=== PATIENT | female | born 1970 | race Caucasian/White ===

== ENCOUNTER → 2017-01-15 | Outpatient (CLI) | payer OTHER ==
--- NOTE | 2017-01-15 16:35 | KCIC ---
PROCEDURE MRI lumbar spine without contrast. HISTORY Pain unresponsive to conservative therapy, bilateral hip pain greater on the right TECHNIQUE Multiplanar, multi sequential non contrast MR imaging was performed of the lumbar spine. COMPARISON None FINDINGS Most inferior fully formed intervertebral disc space is considered L5-S1 for this report. Lumbar vertebral body stature and AP alignment are maintained. There is mild degenerative disc disease L4-5, mild disc desiccation at L2-3. There are posterior and anterior annular tears at L4-5. Conus terminates normally at T12-L1. L2-3: Spinal canal and neural foramina are adequate. There is negligible disc osteophyte complex and central protrusion. L3-4: There is negligible bulge and central protrusion. Spinal canal and neural foramina are adequate. L4-5: There is a shallow posterior protrusion greatest centrally. Spinal canal and neural foramina are adequate. L5-S1: Spinal canal and neural foramina are adequate. IMPRESSION 1. There is no significant lumbar spinal stenosis or neural foramina compromise. There are shallow posterior bulges/protrusions as stated. There is mild degenerative disc disease at L4-5 and L2-3. Electronically signed by: Refugio Chua MD (Jan 15, 2017 16:33:37)
== END | disposition home or self-care (01) ==
LOC: KCIC MRI 15:20
DX: M51.36 Other intervertebral disc degeneration, lumbar region (principal); M51.26 Other intervertebral disc displacement, lumbar region
CPT/HCPCS: 72148

== ENCOUNTER → 2017-01-17 | Outpatient (CLI) | payer OTHER ==
--- NOTE | 2017-01-17 08:35 | KCIC ---
PROCEDURE MRI right hip without contrast. HISTORY Increasing right hip pain. TECHNIQUE MRI of the right hip was performed without intravenous contrast. FINDINGS There is mildly decreased femoral head/neck offset anteriorly on the right. A small tear of the anterior acetabular labrum is suspected on the sagittal series. This may be contiguous with a small undersurface tear of the anterior aspect of the superior labrum. There is no acetabular retroversion. Joint spaces are maintained. There is no joint effusion. Joint spaces and alignment appear maintained at the left hip. There is no joint effusion. There is no significant greater trochanteric bursitis. There is mild hamstring bursitis on the left. There is no bone marrow edema. Limited images of the pelvic organs reveal no clear abnormality. IMPRESSION - Suspect a small tear of the right anterior acetabular labrum. - Mildly decreased right femoral head/neck offset anteriorly. Correlate for impingement. - Mild left hamstring bursitis. Electronically signed by: Robby Harman (Jan 17, 2017 08:34:56)
== END | disposition home or self-care (01) ==
LOC: KCIC MRI 07:46 → EDUNIT# 08:00
DX: M71.551 Other bursitis, not elsewhere classified, right hip (principal)
CPT/HCPCS: 73721